=== PATIENT | female | born 1960 | race Caucasian/White ===

== ENCOUNTER 2019-04-21 22:49 | Emergency (ER) | payer BC, OTHER ==
[~2019-04-21] VITALS: Ht 162.6 cm; Wt 99.8 kg
[2019-04-21 23:00] VITALS: BP_SYST 138
[2019-04-21] MEDS: NACL 0.9% 1,000 ML IV ONE (23:32)
[2019-04-21] MEDS: ONDANSETRON HCL 4 MG/2 ML VIAL IVP ONE (23:34)
[2019-04-21 23:55] LABS: BASOPHILS % (AUTO) 0.3 % (0.0-2.0); HEMATOCRIT 35.9 % (36-48); LYMPHOCYTES # (AUTO) 0.9 K/uL (1.0-5.5); MEAN CORPUSCULAR HEMOGLOBIN 28 pg (27-31); MEAN CORPUSCULAR HGB CONC 34 % (32-36); MEAN CORPUSCULAR VOLUME 83 fL (79.0-98.0); MONOCYTES # (AUTO) 0.4 K/uL (0.0-1.0); MONOCYTES % (AUTO) 5.9 % (1.7-9.3); NEUTROPHILS # (AUTO) 6.1 K/uL (1.8-7.7); NEUTROPHILS % (AUTO) 81.8 % (40.0-70.0); PLATELET COUNT (AUTO) 203 K/uL (130-430); RED BLOOD CELL COUNT(AUTO) 4.32 MIL/uL (4.2-6.2); WHITE BLOOD COUNT (AUTO) 7.5 K/uL (4.8-10.8)
[2019-04-21] MEDS: MORPHINE 4 MG/ML INJ. SYRINGE IVP ONE (23:56)
[2019-04-21 23:58] LABS: CALCIUM 8.5 mg/dL (8.4-11.0); CREATININE 0.68 mg/dL (0.55-1.30); POTASSIUM 3.5 mmol/L (3.5-5.1)
[2019-04-22 00:03] LABS: ALBUMIN 3.2 g/dL (3.4-4.8); TOTAL BILIRUBIN 0.4 mg/dL (0.0-1.0)
[2019-04-22 01:20] LABS: BILIRUBIN,URINE NEGATIVE (NEGATIVE); BLOOD, URINE 2+ (NEGATIVE); CLARITY/URINE SL CLOUDY (CLEAR); COLOR,URINE YELLOW (YELLOW); GLUCOSE,URINE NEGATIVE (NEGATIVE); KETONES,URINE TRACE (NEGATIVE); LEUKOCYTE ESTERASE ,URINE TRACE (NEGATIVE); NITRITE, URINE NEGATIVE (NEGATIVE); PROTEIN URINE NEGATIVE (NEGATIVE); UROBILINOGEN,URINE 0.2 (0.2-1.0)
[2019-04-22 01:35] VITALS: BP_SYST 134
[2019-04-22 01:36] LABS: BACTERIA,URINE MODERATE /HPF (None Seen)
== END 2019-04-22 01:35 | disposition home or self-care (01) ==
LOC: SED 22:49
DX: R10.32 Left lower quadrant pain (principal); R11.0 Nausea; E11.9 Type 2 diabetes mellitus without complications; I10 Essential (primary) hypertension; Z90.49 Acquired absence of other specified parts of digestive tract; Z88.0 Allergy status to penicillin
CPT/HCPCS: 36415; 74176; 80053; 81000; 83690; 85025; 87086; 96374; 96375; 99284; J2270; J2405; J7030

== ENCOUNTER 2019-10-01 19:53 | Emergency (ER) | payer OTHER ==
[~2019-10-01] VITALS: Ht 160 cm; Wt 90.7 kg
[2019-10-01 20:05] VITALS: BP_SYST 162
--- NOTE | 2019-10-01 20:15 | NUR ---
Patient left without being seen. PT DOES NOT POSSIBLE EXPOSURE TO COVID 19.
--- NOTE | 2019-10-01 20:20 | NUR ---
PT DID NOT WANT TO WAIT FOR MD EVALUATION.
== END 2019-10-01 20:20 | disposition left against medical advice (07) ==
LOC: SED 19:53
DX: M79.604 Pain in right leg (principal); Z53.21 Procedure and treatment not carried out due to patient leaving prior to being seen by health care provider

== ENCOUNTER 2020-08-16 22:18 | Emergency (ER) | payer OTHER ==
[~2020-08-16] VITALS: Ht 160 cm; Wt 93.4 kg
[2020-08-16 22:50] VITALS: BP_SYST 144
[2020-08-16] MEDS ORDERED: KETOROLAC TROMETHAMINE 30 MG VIAL IM ONE (23:00)
[2020-08-16] MEDS ORDERED: HYDROcodone/ACETAMIN 5-325 MG TAB (NORCO/ VICODIN) PO ONE (23:00)
[2020-08-17] MEDS ORDERED: ACET1TAB23 PO (00:28)
[2020-08-17 01:20] VITALS: BP_SYST 144
== END 2020-08-17 01:20 | disposition home or self-care (01) ==
LOC: SED 22:18
DX: S33.5XXA Sprain of ligaments of lumbar spine, initial encounter (principal); M25.561 Pain in right knee; I10 Essential (primary) hypertension; E11.9 Type 2 diabetes mellitus without complications; Z79.899 Other long term (current) drug therapy; Z88.0 Allergy status to penicillin; Z88.8 Allergy status to other drugs, medicaments and biological substances; W10.8XXA Fall (on) (from) other stairs and steps, initial encounter; Y93.89 Activity, other specified; Y92.89 Other specified places as the place of occurrence of the external cause; Y99.8 Other external cause status
CPT/HCPCS: 73564; 96372; 99283; J1885